=== PATIENT | female | born 1995 | race Caucasian/White ===

== ENCOUNTER 2020-05-20 08:34 | Outpatient (REF) | payer MEDICAID, SELFPAY ==
[2020-05-20 10:23] LABS: MANUAL DIFF FLAG NO
[2020-05-20 10:29] LABS: Basophils Percent Auto 0.1 % (0-2); Eosinophils Absolute Auto 0.2 X10*3/uL (0.0-0.4); Eosinophils Percent Auto 1.9 % (0-4); Hematocrit 39.7 % (37-47); Hemoglobin 13.3 g/dl (12.0-16.0); Imm Gran Abs Auto 0.06 X10*3/uL (0.00-0.03); Imm Gran Pct Auto 0.5 % (0.0-0.4); Lymphocytes Absolute Auto 2.3 X10*3/uL (1.2-4.9); Lymphocytes Percent Auto 19.8 % (20-40); Mean Corpuscular HGB Conc 33.5 g/dl (31.0-35.0); Mean Corpuscular Volume 86.7 fL (80-98); Mean Platelet Volume 11.1 fL (9.4-12.3); Monocytes Absolute Auto 1.1 X10*3/uL (0.1-1.2); Monocytes Percent Auto 9.3 % (2-11); Neutrophils Absolute Auto 7.8 X10*3/uL (2.0-8.3); Neutrophils Percent Auto 68.4 % (45-73); Platelet Count 379 X10*3/uL (160-400); Red Blood Count 4.58 X10*6/uL (4.20-5.50); Red Cell Distribution Width 11.9 % (11.0-16.0); White Blood Count 11.4 X10*3/uL (4.8-10.8)
[2020-05-20 11:13] LABS: HCG Quantitative < 2 mIU/mL; Thyroid Stimulating Hormone 1.97 uIU/mL (0.32-4.0)
[2020-05-21 09:21] LABS: BV Int Neg Control Negative (Negative); BV Int Pos Control Positive (Positive)
[2020-05-21 16:02] LABS: C. trachomatis RNA TMA NOT DETECTED (NOT DETECTED); N. gonorrhoeae RNA TMA NOT DETECTED (NOT DETECTED)
== END 2020-05-20 08:35 | disposition home or self-care (01) ==
LOC: HO.LAB 08:34
PROVIDERS: Visit Provider Obstetrics & Gynecology
DX: N92.1 Excessive and frequent menstruation with irregular cycle (principal); N76.0 Acute vaginitis; B96.89 Other specified bacterial agents as the cause of diseases classified elsewhere
CPT/HCPCS: 36415; 84443; 84702; 85025; 87480; 87491; 87510; 87591; 87660; 88142; 99202

== ENCOUNTER 2020-06-03 14:04 | Outpatient (REF) | payer MEDICAID, SELFPAY ==
--- NOTE | ~2020-06-03 | US_ITS ---
EXAMINATION: PELVIC ULTRASOUND CLINICAL INFORMATION: Excessive and frequent menstruation with irregular cycle COMPARISON: None TECHNIQUE: Transabdominal and transvaginal pelvic ultrasound was performed. Transvaginal exam was performed for better visualization of the uterus and ovaries. FINDINGS: The uterus is anteverted and measures 6.8 x 3.1 x 4.5 cm in dimension. No focal uterine lesion is seen. Endometrial thickness is normal measuring 0.9 cm. The endometrium is heterogeneous appearing. There is a 0.9 x 0.5 x 0.7 cm hyperechoic area within the endometrium with central vascularity. Appearance is questionable for a polyp. The cervix is normal appearing. The ovaries are normal in size. The right ovary measures 3.7 x 2.2 x 2.9 cm, volume 12 mL. The left ovary measures 3.8 x 2.2 x 3.1 cm, volume 13 mL. There are multiple peripheral small simple cysts or follicles seen in both ovaries. Appearance is questionable for polycystic ovarian syndrome. There is no fluid in the pelvis. US/US pelvic complete IMPRESSION: Question polycystic appearance of the ovaries. The ovaries are normal in size. Heterogeneous-appearing endometrium with 9 x 5 x 7 mm hyperechoic area with central vascularity questionable for an endometrial polyp.
--- NOTE | ~2020-06-03 | US_ITS ---
EXAMINATION: PELVIC ULTRASOUND CLINICAL INFORMATION: Excessive and frequent menstruation with irregular cycle COMPARISON: None TECHNIQUE: Transabdominal and transvaginal pelvic ultrasound was performed. Transvaginal exam was performed for better visualization of the uterus and ovaries. FINDINGS: The uterus is anteverted and measures 6.8 x 3.1 x 4.5 cm in dimension. No focal uterine lesion is seen. Endometrial thickness is normal measuring 0.9 cm. The endometrium is heterogeneous appearing. There is a 0.9 x 0.5 x 0.7 cm hyperechoic area within the endometrium with central vascularity. Appearance is questionable for a polyp. The cervix is normal appearing. The ovaries are normal in size. The right ovary measures 3.7 x 2.2 x 2.9 cm, volume 12 mL. The left ovary measures 3.8 x 2.2 x 3.1 cm, volume 13 mL. There are multiple peripheral small simple cysts or follicles seen in both ovaries. Appearance is questionable for polycystic ovarian syndrome. There is no fluid in the pelvis. US/US transvaginal IMPRESSION: Question polycystic appearance of the ovaries. The ovaries are normal in size. Heterogeneous-appearing endometrium with 9 x 5 x 7 mm hyperechoic area with central vascularity questionable for an endometrial polyp.
== END 2020-06-03 14:05 | disposition home or self-care (01) ==
LOC: HO.US 14:04
PROVIDERS: Visit Provider Obstetrics & Gynecology
DX: N92.1 Excessive and frequent menstruation with irregular cycle (principal)
CPT/HCPCS: 76830; 76856

== ENCOUNTER → 2020-06-09 11:16 | Outpatient (BNVA) | payer MEDICAID, SELFPAY | PROVIDERS: Visit Provider Obstetrics & Gynecology ==

== ENCOUNTER → 2020-06-30 10:01 | Outpatient (BNVA) | payer MEDICAID, SELFPAY | PROVIDERS: Visit Provider Obstetrics & Gynecology | DX: N84.0 Polyp of corpus uteri (principal) | CPT/HCPCS: 99212 ==

== ENCOUNTER 2020-07-03 09:54 | Day surgery (SDC) | payer MEDICAID, SELFPAY ==
[2020-06-26 15:44] VITALS: BMI 35.2
[2020-07-03 11:34] LABS: UPreg QC Valid YES; Urine Pregnancy NEGATIVE (NEGATIVE)
[2020-07-03] MEDS: Lactated Ringers 1,000 ML 50 ML IV (11:43)
--- NOTE | 2020-07-03 11:52 | P.CONAN_ITS ---
[facility] Active Problems Active Problems: All Active Problems (Updated 06/26/20 @ 15:27 by Bernie granger) Menometrorrhagia (Acute) Bacterial vaginosis (Acute) Endometrial polyp (Acute) Past Medical History Medical History No significant medical problems Surgical History Surgical History No significant past surgical history Social History Social History Are you a primary medicare sales representative to a significant other at home: No Do you presently have visiting nurse or other home services: No Alcohol intake: current Alcohol intake frequency: holidays/special occasions only Smoking Status: Never smoker Use of substances other than those prescribed or required for medical reasons: No Have you been hit, kicked, punched, or otherwise hurt by someone within the past year? If so, by whom?: No Advance Directives: No Advance Directives Information Provided: No Advance Directives on File: No Recently lost weight without trying: No Gender identity: female Meds Allergies Allergy/AdvReac Type Severity Reaction Status Date / Time No Known Allergies Allergy Verified 06/30/20 10:06 Active Medications: Current Medications Generic Name Dose Route Start Last Admin Trade Name Tiara PRN Reason Stop Dose Admin Lactated Ringer's 1,000 mls @ 50 mls/hr 07/02/20 08:15 07/03/20 11:43 Lr IV 50 mls/hr .Q20H TIFFANY Administration Home Medications Medication Instructions Recorded Confirmed Last Taken Type No Known Home Meds 06/26/20 06/26/20 Unknown History Exam Exam Date and Time: July 03, 2020 1152 Height,Weight and Vital Signs: Height 5 ft Weight 81.647 kg Pertinent Lab Results Pertinent Lab Results: Laboratory Tests 07/03/20 11:10 Urine Test NEGATIVE Airway Mallampati Class: II TM Dist: >3cm Neck ROM: Full Assessment and Plan Assessment Anesthesia Assessment: Anesthesia Plan Discussed and Chart Reviewed Final Anesthetic Review NPO: Yes ASA Class: II Final Preanesthetic Review: No Changes in Pt Med Stat, Meds/Allgs Chart Reviewed, Consent Obtained/Reviewed and Anes Risks/Benef Reviewed Patient Risk: Low Procedure Risk: Low Assessment/Block/Sedation in SS: Assess/Block/Sedation-SS Anesthetic Plan Anesthetic Plan: MAC: Disposition: Standard PACU
--- NOTE | 2020-07-03 12:37 | PM.OP ---
Brief Operative Note Date of Service: 07/03/20 Pre-op diagnosis: Endometrial polyp Post-op diagnosis: same Procedure: Hysteroscopy D&C, Polypectomy Surgeon: You Vernon MD Anesthesia: MAC Estimated blood loss (mL): 0 Pathology: other (Endometrial Scrapping. Polyp) Condition: stable Disposition: PACU
--- NOTE | 2020-07-03 12:38 | W.PM.OPN ---
Operative Note Operative Note Date of Service: 07/03/20 Narrative: Preop Diagnosis: Endometrial polyp by US Operation: Diagnostic Hysteroscopy, Dilataion & Curettage and polypectomy Post Op Diagnosis: Endometrial Polyp QBL: Minimal Anesthesia: MAC Surgeon: You Vernon MD [employer] Supervisor: None Complication: None Pathology: Endometrial Scrapings, Endometrial polyp Complication: None Pathology: Endometrial Scrapings, Endometrial polyp Procedure: The patient was put in the dorsal lithotomy position, scrubbed, and draped in the usual manner. A sterile speculum was inserted in the patient's vagina. The anterior lip of the cervix was grasped with a single tooth tenaculum. The cervix was dilated up to 5 mm, then the scope was inserted in the patient's uterus. Inspection revealed endometrial polyp. The Myosure Reach device was used; it was introduced through the operative channel and polypectomy done with no complications. At the end of the procedure, all instruments were taken out of the patient uterine and vaginal cavity. The single tooth tenaculum was removed and homeostasis was assured using pressure,. The patient tolerated the procedure well and was transferred to the PACU in a stable condition.
[2020-07-03 12:42] VITALS: BP 119/69; PULSE 102; RESP 20; TEMP 36.1; O2SAT 98
--- NOTE | 2020-07-03 12:50 | MHC.SHP ---
Pre-Procedural Eval Section A The patient is an INPATIENT: No Changes since office visit: No Cold of Flu in the past 2 weeks, No New Medical Problems, No Changes in Medication and No Patient answered all questions The History & Physical has been completed within 30 days and I have reviewed it.: Yes Section B Chief Complaint: Polyp of Corpus Uteri Allergies: Allergies Allergy/AdvReac Type Severity Reaction Status Date / Time No Known Allergies Allergy Verified 06/30/20 10:06 Plan Diagnosis/Plan: Unchanged I have reviewed the history and physical and performed a pertinent physical examination on my patient. No changes have occurred unless specified.
[2020-07-03] MEDS: Acetaminophen 325 MG TABLET 650 MG PO (12:52)
[2020-07-03] MEDS: oxyCODONE HCl Immed Release 5 MG TABLET PO (12:53)
[2020-07-03 12:57] VITALS: BP 117/61; PULSE 99; RESP 20; O2SAT 93
[2020-07-03 13:12] VITALS: BP 119/71; PULSE 92; RESP 17; O2SAT 96
[2020-07-03 13:28] VITALS: BP 127/82; PULSE 97; RESP 20; TEMP 36.1; O2SAT 98
== END 2020-07-03 15:27 | disposition home or self-care (01) ==
LOC: HO.SSS 09:55
PROVIDERS: Visit Provider Obstetrics & Gynecology
PROC: 0UDB8ZZ Extraction of Endometrium, Via Natural or Artificial Opening Endoscopic (ICD-10-PCS; CPT 58558; principal; 2020-07-03 11:50)
DX: N84.0 Polyp of corpus uteri (principal); N92.1 Excessive and frequent menstruation with irregular cycle
CPT/HCPCS: 58558; 81025; 88305; J1100; J1885; J2250; J2405; J3010

== ENCOUNTER → 2020-07-10 11:08 | Outpatient (BNVA) | payer MEDICAID, SELFPAY | PROVIDERS: Visit Provider Obstetrics & Gynecology | DX: N93.9 Abnormal uterine and vaginal bleeding, unspecified (principal) | CPT/HCPCS: 99212 ==

== ENCOUNTER → 2020-07-16 09:24 | Outpatient (BNVA) | payer MEDICAID, SELFPAY | PROVIDERS: Visit Provider Obstetrics & Gynecology ==